=== PATIENT | male | born 1995 | race Caucasian/White ===

== ENCOUNTER 2016-05-24 10:13 | Emergency (ER) | payer OTHER ==
[2016-05-24] MEDS ORDERED: DEXAMETHASONE 10 MG/ML VIAL PO STA (10:37)
[2016-05-24] MEDS ORDERED: CHERRY SYRUP 10 ML UDC PO ONE (10:39)
[2016-05-24] MEDS ORDERED: IBUPROFEN 800 MG TABLET PO ONE (10:39)
[2016-05-24] MEDS ORDERED: DEXAMETHASONE 10 MG/ML VIAL ONE (10:39)
[2016-05-24] MEDS ORDERED: IBUPROFEN 800 MG TABLET PO STA (10:39)
== END 2016-05-24 11:36 | disposition home or self-care (01) ==
DX: B34.9 Viral infection, unspecified (principal)
CPT/HCPCS: 87070; 87430; 99283; A9270